=== PATIENT | female | born 1940 | race Caucasian/White ===

== ENCOUNTER 2018-08-07 11:44 | Inpatient (IN) | payer MEDICARE ==
[~2018-08-07] VITALS: Ht 154.9 cm; Wt 38.6 kg
[2018-08-07] MEDS ORDERED: COMBIVENT RESPIM4 GM INH (11:59)
[2018-08-07] MEDS ORDERED: ADVAIR HFA 230-12 GM INH (11:59)
[2018-08-07] MEDS ORDERED: KLONOPIN0.5 MG PO (12:00)
[2018-08-07] MEDS ORDERED: PREMARIN0.3 MG PO (12:00)
[2018-08-07] MEDS ORDERED: ALBUTEROL SULF8.5 GM INH (12:00)
[2018-08-07] MEDS ORDERED: LISINOPRIL20 MG PO (12:01)
[2018-08-07] MEDS ORDERED: XOFLUZA40 MG PO (12:01)
[2018-08-07 12:35] LABS: BASOPHILS 1.9 % (0-2); EOSINOPHILS 1.7 % (0-7); HEMATOCRIT 35.4 % (36.0-48.0); HEMOGLOBIN 12.1 g/dL (12-16); IMMATURE GRANULOCYTES 0.3 % (0-5); LYMPHOCYTES 7.1 % (15-50); MCH 31.6 pg (26.0-34.0); MCHC 34.2 g/dL (31.0-37.0); MCV 92.4 fL (80.0-100.0); MEAN PLATELET VOLUME 8.6 fL (7.4-10.4); MONOCYTES 12.8 % (2-11); NEUTROPHILS 76.2 % (40-80); PLATELET COUNT 283 10x3/uL (130-400); RBC 3.83 10x6/uL (4.00-5.40); RDW 13.1 % (11.5-14.5); WBC 7.6 10x3/uL (4.8-10.8)
[2018-08-07 12:45] LABS: ALBUMIN 4.1 g/dL (3.4-5.0); ANION GAP 12.8 mmol/L (8-16); BILIRUBIN - TOTAL 0.37 mg/dL (0.2-1.3); CALCIUM 8.7 mg/dL (8.5-10.1); CARBON DIOXIDE 27.3 mmol/L (21.0-32.0); CREATININE - SERUM 0.8 mg/dL (0.6-1.3); POTASSIUM - SERUM 4.1 mmol/L (3.5-5.1); PROTEIN - SERUM 8.5 g/dL (6.4-8.2)
--- NOTE | 2018-08-07 12:45 | NUR ---
PT IN WITH C/O BILATERAL EAR PAIN, NO ENERGY, WEIGHT LOSS, DENIES N/V/D AT THIS TIME, ALTHOUGH SHE HAS HAD A LOT OF NAUSEA. FAMILY AT BEDSIDE, WAS DIAGNOSED WITH THE FLU.
[2018-08-07 14:33] LABS: APPEARANCE CLEAR (CLEAR); BILIRUBIN NEGATIVE (NEGATIVE); COLOR YELLOW (YELLOW); GLUCOSE NEGATIVE (NEGATIVE); KETONE SMALL mg/dL (NEGATIVE); NITRITE NEGATIVE (NEGATIVE); PROTEIN NEGATIVE (NEGATIVE); SPECIFIC GRAVITY 1.015 (1.005-1.020); UROBILINOGEN NORMAL (NORMAL)
--- NOTE | 2018-08-07 14:51 | NUR ---
CALLED TO THE ROOM, PATIENT STATES HER ABD HURTS, PROVIDER NOTIFIED NO NEW ORDERS GIVEN AT THIS TIME.
[2018-08-07 15:07] VITALS: BP 213/110
--- NOTE | 2018-08-07 17:27 | NUR ---
PATIENT ADMITTED TO ROOM 2207 FROM ER FOR POSITIVE FLU TEST. IV TO LFA PATENT AND RUNNING NORMAL SALINE AT 125. STATES NOT IN PAIN AT THIS TIME AND WANTS TO REST. ALERT AND ORIENTED X 3. LUNGS CLEAR BILATERALLY. HEART SOUNDS HEARD IN ALL SCOTT. SKIN INTACT WITHOUT REDNESS. EDUCATION PROVIDED ON DROPLET ISOLATION. VERBALIZED UNDERSTANDING. DENIES FURTHER NEEDS. WILL CONTINUE TO MONITOR.
--- NOTE | 2018-08-07 18:19 | NUR ---
PATIENT LYING IN BED RESTING. DENIES PAIN. DENIES NEEDS. WILL CONTINUE TO MONITOR.
--- NOTE | 2018-08-07 19:05 | NUR ---
IV INFILTRATED TO LEFT AC. RESITED TO LEFT UPPER ARM WITHOUT DIFFICULTY.
[2018-08-07 20:00] VITALS: BP 133/66
[2018-08-08] VITALS: BP 135/71
--- NOTE | 2018-08-08 03:07 | NUR ---
PT ALERT AND COMPLAINED THROUGH OUT EVENING. STATED SHE WANTED HOME MEDS RESTARTED. OBTAINED ORDERS FROM ER EARLIER IN THE EVENING FOR KLONOPIN AND BREATHING TREATMENTS THAT PT STATED SHE NEEDED. NOW PT STATES THAT SHE WANTS OTHER MEDICINES AND WANTS MORE KLONOPIN. PT YELLS AND CAN BE RUDE WITH NURSING STAFF. EDUCATED PT THAT THIS NURSE HAS TO FOLLOW ORDERS WHEN IT COMES TO MEDICATION ADMINISTRATION. CALL LIGHT IN REACH. CPOC. O2 AT 2 PER NC. LEFT UPPER ARM IV. NS @100. ENGRAVER SET UP OPERATOR ON.
[2018-08-08 04:00] VITALS: BP 131/69
--- NOTE | 2018-08-08 04:22 | NUR ---
I have reviewed this patient and I concur with the Shift Assessment completed by the Licensed Practical Nurse today this shift.
--- NOTE | 2018-08-08 07:42 | NUR ---
PATIENT IN BED WITH EYES OPEN. NO COMPLAINTS OR SIGNS OF DISTRESS. IV INTACT. MANAGEMENT INTERNSHIP AT BEDSIDE. CALL LIGHT WITHIN REACH.
[2018-08-08 08:42] LABS: BASOPHILS 1.2 % (0-2); LYMPHOCYTES 15.1 % (15-50); MCHC 33.3 g/dL (31.0-37.0); MCV 92.9 fL (80.0-100.0); MEAN PLATELET VOLUME 8.4 fL (7.4-10.4); MONOCYTES 9.7 % (2-11); RDW 13.2 % (11.5-14.5)
[2018-08-08 08:49] LABS: CALC OSMOLALITY 263 mosm/kg (275-300); CALCIUM 7.5 mg/dL (8.5-10.1); CARBON DIOXIDE 21.4 mmol/L (21.0-32.0); CHLORIDE - SERUM 100 mmol/L (98-107); CREATININE - SERUM 0.7 mg/dL (0.6-1.3); GLUCOSE 74 mg/dL (74-106); HEMATOCRIT 27.6 % (36.0-48.0); HEMOGLOBIN 9.2 g/dL (12-16); PLATELET COUNT 212 10x3/uL (130-400); POTASSIUM - SERUM 3.8 mmol/L (3.5-5.1); RBC 2.97 10x6/uL (4.00-5.40); SODIUM 133 mmol/L (136-145); WBC 4.9 10x3/uL (4.8-10.8); eGFR NON AFRICAN AMERICAN 86 mL/min (90-120)
[2018-08-08 08:50] LABS: UREA NITROGEN 9 mg/dL (7-18)
[2018-08-08 10:10] VITALS: BP 144/90
[2018-08-08 14:23] VITALS: BP 143/60
[2018-08-08 16:00] VITALS: BP 136/73
--- NOTE | 2018-08-08 18:55 | NUR ---
PATIENT IN BED WITH IV INTACT. NO COMPLAINTS OR SIGNS OF DISTRESS. CALL LIGHT WITHIN REACH.
[2018-08-08 20:00] VITALS: BP 148/73
[2018-08-09] VITALS: BP 150/63
[2018-08-09 03:00] VITALS: BP 153/60
--- NOTE | 2018-08-09 05:03 | NUR ---
PT IN BED IN LOW FOWLERS POSITION. ALERT AND ORIENTED X4. RESPIRATIONS EVEN AND UNLABORED. VITAL SIGNS STABLE AND AFEBRILE. NO VISUAL CUES OF DISTRESS NOTED. DENIES ANY OTHER NEEDS AT THIS TIME. BED LOW, SIDE RAILS UP X2. CALL LIGHT IN REACH. WILL CONTINUE TO MONITOR.
[2018-08-09 05:27] LABS: BASOPHILS 0.8 % (0-2); HEMATOCRIT 25.9 % (36.0-48.0); HEMOGLOBIN 8.8 g/dL (12-16); IMMATURE GRANULOCYTES 0.2 % (0-5); LYMPHOCYTES 21.7 % (15-50); MCH 31.2 pg (26.0-34.0); MCV 91.8 fL (80.0-100.0); MEAN PLATELET VOLUME 8.6 fL (7.4-10.4); NEUTROPHILS 59.3 % (40-80); PLATELET COUNT 212 10x3/uL (130-400); RBC 2.82 10x6/uL (4.00-5.40); RDW 13.4 % (11.5-14.5); WBC 4.8 10x3/uL (4.8-10.8)
[2018-08-09 05:33] LABS: CALC OSMOLALITY 277 mosm/kg (275-300); CALCIUM 7.5 mg/dL (8.5-10.1); CARBON DIOXIDE 24.7 mmol/L (21.0-32.0); CHLORIDE - SERUM 105 mmol/L (98-107); CREATININE - SERUM 0.6 mg/dL (0.6-1.3); GLUCOSE 96 mg/dL (74-106); POTASSIUM - SERUM 3.5 mmol/L (3.5-5.1); SODIUM 139 mmol/L (136-145); eGFR NON AFRICAN AMERICAN > 90 mL/min (90-120)
[2018-08-09 05:41] LABS: UREA NITROGEN 12 mg/dL (7-18)
--- NOTE | 2018-08-09 08:15 | NUR ---
PATIENT IN BED WITH IV INTACT. NO COMPLAINTS OR SIGNS OF DISTRESS. CALL LIGHTW ITHIN REACH.
[2018-08-09 09:23] VITALS: BP 172/88
[2018-08-09 13:49] VITALS: BP 170/88
[2018-08-09 13:51] VITALS: Ht 154.9 cm; Wt 38.6 kg
[2018-08-09 14:25] LABS: % SATURATION 7 % (15-55); IRON 17 ug/dl (35-150); TOTAL IRON BIND CAPACITY 231 ug/dl (260-445); UNSAT IRON BIND CAPACITY 214 ug/dl (150-375)
[2018-08-09] MEDS ORDERED: TAMIFLU75 MG PO (14:57)
--- NOTE | 2018-08-09 15:33 | MORECARE ---
CASE MANAGEMENT DISCHARGE SUMMARY PATIENT: BETTY EASLEY UNIT: [id number] ADM DATE: 08/08/18 AGE: 77 : 39 SEX: F ROOM/BED: D.2207 AUTHOR: BENNETT GARCIA PHYSICIAN: REFERRING PHYSICIAN: PEREZ NGO MD DATE OF SERVICE: 08/09/18 Discharge Plan Patient Name: BETTY EASLEY Facility: [facility]:[place] : 1940 Planned Disposition: Home Anticipated Discharge Date: 08/09/18 Discharge Date: Expected LOS: 1 Initial Reviewer: [email or web address] Initial Review Date: 08/09/2018 Generated: 08/09/18 4:33 pm Comments DCP- Discharge Planning Updated by [email or web address]: Cassandra Hagan on 08/09/18 2:[address] Patient Name: BETTY EASLEY Admission Status: ER Accout number: [id number] Admission Date: 08-08-2018 : 1940 Admission Diagnosis: Attending: PEREZ NGO Current LOS: 1 Anticipated DC Date: 08-09-2018 Planned Disposition: Home Primary Insurance: MEDICARE A & B Discharge Planning Comments: CM SPOKE WITH PATIENT AND SHE PLANS TO DC TO HOME WITH HER DAUGHTER. DENIES NEEDS, STATES SHE HAS ALL SHE NEEDS AT HOME. CM WILL FOLLOW AND ASSIST NEEDED WITH DC PLANNING/NEEDS. Supervisor Veneer: Cassandra Hagan Coverage Notice Reviewer: [email or web address] Jagdish Pulido Notice Issued Date-Time: 08/07/2018 15:30 Notice Type: Medicare Outpatient Observation Notice Notice Delivered To: Patient Relationship to Patient: Riveter Helper Name: Delivery Method: HAND - Hand Delivered Asha Days: Prior Verbal Notification: Recipient Understood Notice: Yes Recipient Signature: Yes Med Rec Note Co-signed by Attending: Coverage Notice Comment: Patient Name: BETTY EASLEY Page [phone] at 1533 All edits/amendments must be made on the electronic document DICTATION DATE: 08/09/18 153 BRUSHING MACHINE OPERATOR: NIECY 08/09/181531 RPT#: [id number] DC DATE: STATUS: ADM IN [place] [id number] [place] [id number] END OF REPORT
--- NOTE | 2018-08-09 16:15 | NUR ---
PATIENT RECIEVED DC INSTRUCTIONS. VERBALIZED UNDERSTANDING. NO QUESTIONS AT THIS TIME. IV REMOVED WITH CATH TIP INTACT. AWAITING TRANSPORTATION FOR DC.
--- NOTE | 2018-08-10 12:08 | MORECARE ---
CASE MANAGEMENT DISCHARGE SUMMARY PATIENT: BETTY EASLEY UNIT: [id number] ADM DATE: 08/08/18 AGE: 77 : 39 SEX: F ROOM/BED: D.2207 AUTHOR: BENNETT GARCIA PHYSICIAN: REFERRING PHYSICIAN: PEREZ NGO MD DATE OF SERVICE: 08/10/18 Discharge Plan Patient Name: BETTY EASLEY Facility: [facility]:[place] : 1940 Planned Disposition: Home Anticipated Discharge Date: 08/09/18 Discharge Date: 08/09/2018 Expected LOS: 1 Initial Reviewer: [email or web address] Initial Review Date: 08/09/2018 Generated: 08/10/18 1:08 pm Comments DCP- Discharge Planning Updated by [email or web address]: Cassandra Hagan on 08/09/18 2:[address] Patient Name: BETTY EASLEY Admission Status: ER Accout number: [id number] Admission Date: 08-08-2018 : 1940 Admission Diagnosis: Attending: PEREZ NGO Current LOS: 1 Anticipated DC Date: 08-09-2018 Planned Disposition: Home Primary Insurance: MEDICARE A & B Discharge Planning Comments: CM SPOKE WITH PATIENT AND SHE PLANS TO DC TO HOME WITH HER DAUGHTER. DENIES NEEDS, STATES SHE HAS ALL SHE NEEDS AT HOME. CM WILL FOLLOW AND ASSIST NEEDED WITH DC PLANNING/NEEDS. Ekg Tech: Cassandra Hagan Coverage Notice Reviewer: [email or web address] Jagdish Pulido Notice Issued Date-Time: 08/07/2018 15:30 Notice Type: Medicare Outpatient Observation Notice Notice Delivered To: Patient Relationship to Patient: Eye Glass Frame Polisher Name: Delivery Method: HAND - Hand Delivered Asha Days: Prior Verbal Notification: Recipient Understood Notice: Yes Recipient Signature: Yes Med Rec Note Co-signed by Attending: Coverage Notice Comment: Last DP export: 08/09/18 2:33 p Patient Name: BETTY EASLEY Page [phone] at 1208 All edits/amendments must be made on the electronic document DICTATION DATE: 08/10/18 1208 LAND SURVEYING MANAGER: NIECY 08/10/18 1208 RPT#: [id number] DC DATE:08/09/18 STATUS: DIS IN [facility] [address] [facility] [place] [address] END OF REPORT
== END 2018-08-09 18:33 | disposition home or self-care (01) | DRG 641 ==
LOC: D.ER 11:44 → D.MS 15:03 → D.EDHOLD 15:03 → OBSVTIME 15:03 → D.MS 15:41
PROVIDERS: Emergency Medicine; ADMIT Internal Medicine Nephrology; ATTEND Internal Medicine Nephrology
DX: E87.1 Hypo-osmolality and hyponatremia (principal); J44.1 Chronic obstructive pulmonary disease with (acute) exacerbation; F17.213 Nicotine dependence, cigarettes, with withdrawal; J11.1 Influenza due to unidentified influenza virus with other respiratory manifestations; I10 Essential (primary) hypertension

== ENCOUNTER → 2018-08-30 09:27 | Outpatient (CLI) | payer MEDICARE, OTHER ==
[~2018-08-30 09:27] MED LIST: ADVAIR HFA 230-12 GM INH; ALBUTEROL SULF8.5 GM INH; COMBIVENT RESPIM4 GM INH; KLONOPIN0.5 MG PO; LISINOPRIL20 MG PO; PREMARIN0.3 MG PO; TAMIFLU75 MG PO; XOFLUZA40 MG PO
== END | disposition home or self-care (01) ==
LOC: D.CT 09:27
DX: R10.13 Epigastric pain (principal); R51 Headache

== ENCOUNTER 2019-02-26 21:29 | Emergency (ER) | payer MEDICARE, OTHER ==
[~2019-02-26] VITALS: Ht 154.9 cm; Wt 43.6 kg
[2019-02-26 21:52] VITALS: Ht 154.9 cm; Wt 43.6 kg
[2019-02-26] MEDS ORDERED: TYLENOL W/CODEI1 TAB PO (21:54)
[2019-02-26 22:12] LABS: HEMATOCRIT 32.4 % (36.0-48.0); HEMOGLOBIN 11.1 g/dL (12-16); MCHC 34.3 g/dL (31.0-37.0); MCV 93.4 fL (80.0-100.0); MEAN PLATELET VOLUME 8.7 fL (7.4-10.4); RBC 3.47 10x6/uL (4.00-5.40); RDW 12.7 % (11.5-14.5); WBC 14.4 10x3/uL (4.8-10.8)
[2019-02-26 22:14] LABS: PLATELET COUNT 300 10x3/uL (130-400)
[2019-02-26 22:18] LABS: APTT 30.5 SECONDS (22.8-39.4); INR 1.03 (0.85-1.17)
[2019-02-26 22:24] LABS: ALBUMIN 3.5 g/dL (3.4-5.0); ALKALINE PHOSPHATASE 74 U/L (46-116); ALT (SGPT) 16 U/L (10-68); CALC OSMOLALITY 270 mosm/kg (275-300); CALCIUM 8.5 mg/dL (8.5-10.1); CARBON DIOXIDE 26.1 mmol/L (21.0-32.0); CHLORIDE - SERUM 99 mmol/L (98-107); GLUCOSE 137 mg/dL (74-106); POTASSIUM - SERUM 3.7 mmol/L (3.5-5.1); PROTEIN - SERUM 7.5 g/dL (6.4-8.2); SODIUM 134 mmol/L (136-145); UREA NITROGEN 14 mg/dL (7-18); eGFR NON AFRICAN AMERICAN 57 mL/min (90-120)
[2019-02-26 22:27] LABS: BASOPHILS 1 % (0-2); EOSINOPHILS 7 % (0-7); LYMPHOCYTES 18 % (15-50); MONOCYTES 1 % (2-11); NEUTROPHILS 73 % (40-80); PLATELET ESTIMATE NORMAL
[2019-02-26 22:28] LABS: TARGET CELLS OCC
[2019-02-26 22:35] LABS: CREATINE KINASE 71 UL (21-215); PRO BNP 152 pg/mL (0-450); TROPONIN-I < 0.017 ng/mL (0.000-0.060)
[2019-02-27] MEDS ORDERED: HYDROCORTISONE30 G8 TOPICAL (00:31)
[2019-02-27 00:51] VITALS: BP 115/78
== END 2019-02-27 00:51 | disposition home or self-care (01) ==
LOC: D.ER 21:29
PROVIDERS: Family Medicine
DX: M19.041 Primary osteoarthritis, right hand (principal); I10 Essential (primary) hypertension; J44.9 Chronic obstructive pulmonary disease, unspecified

== ENCOUNTER 2020-03-04 23:44 | Emergency (ER) | payer MEDICARE, OTHER ==
[~2020-03-04] VITALS: Ht 154.9 cm; Wt 45.0 kg
[~2020-03-04 23:44] MED LIST changes: +HYDROCORTISONE30 G8 TOPICAL; +TYLENOL W/CODEI1 TAB PO
[2020-03-04 23:51] VITALS: Ht 154.9 cm; Wt 45.0 kg
[2020-03-05 00:34] LABS: BILIRUBIN NEGATIVE (NEGATIVE); KETONE NEGATIVE (NEGATIVE); NITRITE NEGATIVE (NEGATIVE); UROBILINOGEN NORMAL mg/dL (< 2)
[2020-03-05 00:39] LABS: EOSINOPHILS 6.8 % (0-7); HEMATOCRIT 36.6 % (36.0-48.0); HEMOGLOBIN 12.3 g/dL (12-16); IMMATURE GRANULOCYTES 0.3 % (0-5); LYMPHOCYTES 31.9 % (15-50); MCH 31.2 pg (26.0-34.0); MCHC 33.6 g/dL (31.0-37.0); MCV 92.9 fL (80.0-100.0); MEAN PLATELET VOLUME 8.4 fL (7.4-10.4); MONOCYTES 9.3 % (2-11); NEUTROPHILS 50.7 % (40-80); PLATELET COUNT 327 10x3/uL (130-400); RBC 3.94 10x6/uL (4.00-5.40); RDW 12.9 % (11.5-14.5)
[2020-03-05 00:43] LABS: CALC OSMOLALITY 265 mosm/kg (275-300); CARBON DIOXIDE 26.9 mmol/L (21.0-32.0); CHLORIDE - SERUM 95 mmol/L (98-107); CREATININE - SERUM 1.1 mg/dL (0.6-1.3); SODIUM 130 mmol/L (136-145); UREA NITROGEN 28 mg/dL (7-18); eGFR NON AFRICAN AMERICAN 51 mL/min (90-120)
[2020-03-05 00:47] LABS: GLUCOSE 89 mg/dL (74-106)
[2020-03-05 00:54] LABS: ALBUMIN 3.9 g/dL (3.4-5.0); ALKALINE PHOSPHATASE 84 U/L (30-120); ALT (SGPT) 21 U/L (10-68); AMYLASE - SERUM 53 U/L (25-115); BILIRUBIN - TOTAL 0.14 mg/dL (0.2-1.3); LIPASE 92 U/L (73-393); PROTEIN - SERUM 8.3 g/dL (6.4-8.2); TROPONIN-I < 0.017 ng/mL (0.000-0.060)
[2020-03-05 02:10] VITALS: BP 172/76
== END 2020-03-05 02:10 | disposition home or self-care (01) ==
LOC: D.ER 23:44
PROVIDERS: Family Medicine
DX: K43.9 Ventral hernia without obstruction or gangrene (principal); I10 Essential (primary) hypertension; J44.9 Chronic obstructive pulmonary disease, unspecified

== ENCOUNTER 2020-10-24 12:49 | Emergency (ER) | payer MEDICARE, OTHER ==
[2020-03-19 16:36] VITALS: BMI 18.7
[~2020-10-24 12:49] MED LIST changes: +ADVAIR 250-501 EAC1 INH; +APAP CODEINE; +ASCORBIC ACID500 MG PO; +HYDROCODON-ACE1 EAC7 PO; +KEFLEX500 MG PO; +MERIBIN5 MG; +MULTI-DAY VITAM1 TAB PO; +PEPCID AC20 MG PO; +TESSALON PERLE100 MG PO; +VITAMIN D-32000 UNI1 PO
== END 2020-10-24 13:35 | disposition left against medical advice (07) ==
LOC: D.ER 12:49
DX: R19.7 Diarrhea, unspecified (principal)